=== PATIENT | female | born 1970 | race Caucasian/White ===

== ENCOUNTER 2018-01-19 08:52 | Emergency (ER) | payer OTHER ==
[2018-01-19] MEDS ORDERED: Pantoprazole 40 MG VIAL ONE (09:58)
[2018-01-19] MEDS ORDERED: Acetaminophen 500 MG TAB ONE (10:00)
== END 2018-01-19 10:16 | disposition home or self-care (01) ==
LOC: NAV ERS 08:52
DX: K52.9 Noninfective gastroenteritis and colitis, unspecified (principal)
CPT/HCPCS: 96361; 96374; C9113